=== PATIENT | female | born 1960 | race Caucasian/White ===

== ENCOUNTER 2021-01-01 17:33 | Emergency (ER) | payer OTHER ==
[2021-01-01] MEDS ORDERED: VIBRAMYCIN100 MG PO (22:43)
== END 2021-01-01 23:18 | disposition home or self-care (01) ==
LOC: FER 17:33
DX: E11.621 Type 2 diabetes mellitus with foot ulcer (principal); L97.529 Non-pressure chronic ulcer of other part of left foot with unspecified severity; L03.032 Cellulitis of left toe
CPT/HCPCS: 73630